=== PATIENT | male | born 2000 | race Caucasian/White ===

== ENCOUNTER 2021-03-21 20:35 | Day surgery (SDC) | payer BC ==
[~2021-03-21] VITALS: Ht 178 cm; Wt 79.0 kg
[2021-03-21] MEDS ORDERED: fentaNYL INJ 100 MCG/2 ML AMP IVP ONE ×2 (20:45→21:00)
[2021-03-21] MEDS ORDERED: ceFAZolin INJECTION 1,000 MG in WATER (STERILE) FOR INJECTION 10 ML IV ONE (20:45)
--- NOTE | 2021-03-21 20:53 | ED Upper Extremity ---
General Chief Complaint: Upper Extremity Stated Complaint: BROKE L ARM Source: patient Exam Limitations: no limitations History of Present Illness Date Seen by Provider: Mar 21, 2021 Time Seen by Provider: 20:48 Initial Comments To ER POV from home with c/o deformity to left distal forearm after he was running, tripped and fell trying to catch himself on an outstretched left arm just prior to arrival. Onset: just prior to arrival Severity: moderate Pain/Injury Location: left forearm Method of Injury: fell Modifying Factors: Worse With Movement Allergies and Home Medications Allergies Coded Allergies: Penicillins (Verified Allergy, Unknown, 03/21/21) Patient Home Medication List Home Medication List Reviewed: Yes Review of Systems Constitutional: see HPI EENTM: see HPI Respiratory: no symptoms reported Cardiovascular: no symptoms reported Genitourinary: no symptoms reported Musculoskeletal: see HPI Skin: no symptoms reported Psychiatric/Neurological: No Symptoms Reported Physical Exam Vital Signs Capillary Refill : Height, Weight, BMI Height: '" Weight: lbs. oz. kg; BMI Method: General Appearance: WD/WN, no apparent distress Neck: non-tender, full range of motion Respiratory: normal breath sounds, no respiratory distress, no accessory muscle use Gastrointestinal: normal bowel sounds, non tender, soft Shoulder: normal inspection, non-tender Elbow/Forearm: normal inspection, non-tender Wrist: Yes deformity (unable to palpate radial pulse (though BP is low at 89/50) however there is capillary refill at 3 seconds of the fingertips and strong blood flow over the radial artery with doppler. ), Yes limited ROM Hand: normal inspection, non-tender Neurologic/Tendon: normal sensation, normal motor functions, normal tendon f unctions, other (normal sensation of fingertips, can flex and extend fingers. Obvious fracture of distal radius and ulna. Two minimally bleeding lacerations to volar aspect of wrist overlying fracture site, presumed an open fracture. ) Neurologic/Psychiatric: alert, normal mood/affect, oriented x 3 Skin: normal color, warm/dry Progress/Results/Core Measures Results/Orders My Orders Orders - COREEN MCDANIELS APRN Cbc With Automated Diff (03/21/21 20:45) Alcohol (03/21/21 20:45) Comprehensive Metabolic Panel (03/21/21 20:45) Protime With Inr (03/21/21 20:45) Wrist, Left, 3 Views Or More (03/21/21 20:45) Elbow, Left, 2 Views (03/21/21 20:45) Cefazolin Injection (Ancef Injection) (03/21/21 20:45) Fentanyl Inj (Sublimaze Injection) (03/21/21 20:45) Lactated Ringers (Lr 1000 Ml Iv Solution (03/21/21 21:00) Fentanyl Inj (Sublimaze Injection) (03/21/21 21:00) Dipht,Pertuss(Acell),Tet Adult (Boostrix (03/21/21 21:15) Medications Given in ED Current Medications Medications Dose Ordered Sig/[place] Route Start Time Stop Time Status Last Admin Dose Admin Cefazolin Sodium 1000 mg/Sterile Water 10 ml @ 200 mls/hr ONCE ONCE IV 03/21/21 20:45 03/21/21 20:47 DC 03/21/21 21:01 200 MLS/HR Fentanyl Citrate 50 mcg ONCE ONCE IVP 03/21/21 21:00 03/21/21 21:01 DC 03/21/21 21:00 50 MCG Fentanyl Citrate 75 mcg ONCE ONCE IVP 03/21/21 20:45 03/21/21 20:47 DC 03/21/21 20:59 75 MCG Departure Communication (Admissions) 2124-discussed with Dr Spears, will be in to take pt to OR. Has received ancef here, 125mcg fentanyl, 1 liter LR infusing. BP up to 127/84 HR 96. ALert and oriented. Impression Primary Impression: Open fracture of left forearm Disposition: ADMITTED INPATIENT Condition: Stable Admissions Decision to Admit Reason: Admit from ER (Trauma) Decision to Admit/Date: Mar 21, 2021 Time/Decision to Admit Time: 21:29 COREEN MCDANIELS APRN Mar 21, 2021 20:53
[2021-03-21] MEDS: LACTATED RINGERS 1,000 ML IV SCH ×2 (21:01→21:11)
[2021-03-21] MEDS ORDERED: TETANUS,DIPTH,PERTUSS P/F (BOOSTRIX) 0.5 ML VIAL IM ONE (21:15)
--- NOTE | 2021-03-21 21:28 | Diagnostic Imaging Report ---
Left elbow at 857 hours. INDICATION: Injury, elbow pain. AP and off lateral views were obtained. FINDINGS: There is no fracture, dislocation or acute bony abnormality evident. The elbow joint seems well maintained. The soft tissues are unremarkable. The posterior fat-pad of the elbow joint could not be visualized due to positioning. IMPRESSION: There is no acute bony abnormality of the elbow joint. Dictated by: Dictated on workstation # [id number]
--- NOTE | 2021-03-21 21:29 | Diagnostic Imaging Report ---
Left wrist at 853 hours. INDICATION: Injury. 3 views were obtained. FINDINGS: There are widely displaced comminuted fractures of the distal radius and ulna. The distal fracture fragments are displaced medially and dorsally by more than the width of the radial and ulnar shafts. There is also a large 1.5 cm fracture fragment just below the skin surface along the volar aspect of the forearm. In addition, there appears to be a nondisplaced fracture of the ulnar styloid. No other fracture or acute bony abnormality is appreciated. IMPRESSION: There are widely displaced comminuted fractures of the distal radius and ulna. Nondisplaced fracture of the base of the ulnar styloid is also seen. Dictated by: Dictated on workstation # [id number]
[2021-03-21 21:33] LABS: BASOPHILS % (AUTO) 0 % (0-10); EOSINOPHILS # (AUTO) 0.1 10^3/uL (0.0-0.3); EOSINOPHILS % (AUTO) 1 % (0-10); HEMATOCRIT 42 % (40-54); HEMOGLOBIN 14.4 g/dL (13.3-17.7); LYMPHOCYTES # (AUTO) 1.2 10^3/uL (1.0-4.0); LYMPHOCYTES % (AUTO) 13 % (12-44); MEAN CORPUSCULAR HEMOGLOBIN 29 pg (25-34); MEAN CORPUSCULAR HGB CONC 34 g/dL (32-36); MEAN CORPUSCULAR VOLUME 85 fL (80-99); MEAN PLATELET VOLUME 9.6 fL (9.0-12.2); MONOCYTES # (AUTO) 0.5 10^3/uL (0.0-1.0); MONOCYTES % (AUTO) 6 % (0-12); NEUTROPHILS # (AUTO) 7.5 10^3/uL (1.8-7.8); NEUTROPHILS % (AUTO) 80 % (42-75); PLATELET COUNT 255 10^3/uL (130-400); WHITE BLOOD COUNT 9.4 10^3/uL (4.3-11.0)
[2021-03-21 21:45] LABS: INR 1.1 (0.8-1.4); PROTHROMBIN TIME PATIENT 14.5 SEC (12.2-14.7)
--- NOTE | 2021-03-21 21:52 | Progress Note-Pre Operative ---
Pre-Operative Progress Note H&P Reviewed The H&P was reviewed, patient examined and no changes noted. Date Seen by Provider: Mar 21, 2021 Time Seen by Provider: 21:51 Date H&P Reviewed: Mar 21, 2021 Time H&P Reviewed: 21:52 Pre-Operative Diagnosis: grade one open left both bone forearm fracture NAOMI BRAND MD Mar 21, 2021 21:52
[2021-03-21 21:54] LABS: ALANINE AMINOTRANSFERASE 17 U/L (0-55); ALBUMIN 4.6 GM/DL (3.2-4.5); ALKALINE PHOSPHATASE 47 U/L (40-136); BILIRUBIN,TOTAL 0.6 MG/DL (0.1-1.0); BUN/CREATININE RATIO 12; CARBON DIOXIDE 20 MMOL/L (21-32); CHLORIDE 105 MMOL/L (98-107); CREATININE SERUM 1.01 MG/DL (0.60-1.30); GFR ESTIMATED 94; GLUCOSE 145 MG/DL (70-105); POTASSIUM 3.8 MMOL/L (3.6-5.0); SODIUM 139 MMOL/L (135-145); TOTAL PROTEIN 7.7 GM/DL (6.4-8.2)
--- NOTE | 2021-03-21 21:55 | Progress Note-Post Operative ---
Post-Operative Progess Note Surgeon (s)/Collar Separator (s) Surgeon NAOMI BRAND MD Collar Separator: Rahul Finley Pre-Operative Diagnosis grade one open left both bone forearm fracture Post-Operative Diagnosis grade one open left both bone forearm fracture Procedure & Operative Findings Date of Procedure 03/21/21 Procedure Performed/Findings irrigation and debridement of left radius and open reduction and internal fixation of the left radius and ulna shaft fractures Anesthesia Type GETA Estimated Blood Loss Estimated blood loss (mL): minimal Specimens/Packing Specimens Removed none Packing: none NAOMI BRAND MD Mar 21, 2021 21:55
[2021-03-21] MEDS ORDERED: ACHD5005 PO (21:57)
[2021-03-21] MEDS ORDERED: SEVOFLURANE (ULTANE) 15 ML INHAL SOLN ONE (22:14)
[2021-03-21] MEDS ORDERED: proPOfol 200 MG/20 ML (DIPRIVAN) VIAL IV ONE (22:14)
[2021-03-21] MEDS ORDERED: LIDOCAINE PF 2% 5 ML (XYLOCAINE) VIAL ONE (22:14)
[2021-03-21] MEDS ORDERED: fentaNYL INJ 100 MCG/2 ML AMP ONE (22:14)
[2021-03-21] MEDS ORDERED: ONDANSETRON 4 MG/2 ML (SDV) Z0FRAN ONE (22:14)
[2021-03-21] MEDS ORDERED: fentaNYL INJ 100 MCG/2 ML AMP IVP PRN (22:15)
[2021-03-21] MEDS ORDERED: MIDAZOLAM 2 MG/2 ML (VERSED) VIAL ONE (22:15)
[2021-03-21] MEDS ORDERED: ONDANSETRON 4 MG/2 ML (SDV) Z0FRAN IVP PRN (22:15)
[2021-03-21] MEDS ORDERED: NALOXONE 0.4 MG/ML 1 ML (NARCAN) VIAL IV PRN (22:15)
--- NOTE | 2021-03-21 22:16 | HISTORY AND PHYSICAL ---
DATE OF SERVICE: 03/21/2021 REASON FOR ADMISSION: Grade I open left radius fracture with closed left ulna fracture. 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 Radiographs were obtained, which revealed a distal shaft fracture of the radius and ulna with displacement. The patient denies prior history of forearm problems. ALLERGIES: PENICILLIN. PAST MEDICAL HISTORY: None. PAST SURGICAL HISTORY: Denies. MEDICATIONS: None. PHYSICAL EXAMINATION: GENERAL: The patient is well-developed, well-nourished, in no acute distress. HEENT: Normocephalic, atraumatic. Pupils are equal, round and reactive to light. Oropharynx is clear. NECK: Supple, no lymphadenopathy. LUNGS: Clear to auscultation bilaterally. HEART: Regular rate and rhythm. ABDOMEN: Soft, nontender, nondistended. EXTREMITIES: Left forearm demonstrates no obvious deformity with prominence volarly. There is a 1 cm laceration volarly with no gross contamination. Distally, the patient has intact thumb IP flexion and extension. He has intact MCP extension, and finger abduction. Sensation is intact in radial, ulnar and median distribution, slightly decreased in an ulnar distribution. Radiographs reveal displaced distal radial and ulna shaft fractures. IMPRESSION: Grade I open left radial shaft fracture and closed displaced left ulnar shaft fracture. PLAN: Open reduction and internal fixation, left radius and ulna with irrigation and debridement of the radius. We discussed risks, benefits, options, ramifications and recovery. The patient understands and wishes to proceed. Job ID: [id number] DocumentID: [id number] Dictated Date: 03/21/2021 21:51:41 Power Press Tender Date: 03/21/2021 22:15:28 Dictated By: NAOMI BRAND MD
[2021-03-21] MEDS ORDERED: ceFAZolin INJECTION 1,000 MG ONE (23:17)
[2021-03-21] MEDS ORDERED: BUPIVACAINE 0.5% 30 ML (SENSORCAINE) VIAL ONE (23:17)
[2021-03-22] VITALS (9 sets, daily range): BP systolic 117–138; BP diastolic 71–92
[2021-03-22] MEDS ORDERED: SEVOFLURANE (ULTANE) 15 ML INHAL SOLN ONE (00:04)
--- NOTE | 2021-03-22 00:53 | Anesthesia-General Post-Op ---
General Patient Condition Mental Status/LOC: Same as Preop Cardiovascular: Satisfactory Nausea/Vomiting: Absent Respiratory: Satisfactory Pain: Controlled Complications: Absent Post Op Complications Complications None Follow Up Care/Instructions Patient Instructions None needed. Anesthesia/Patient Condition Patient Condition Patient is doing well, no complaints, stable vital signs, no apparent adverse anesthesia problems. No complications reported per nursing. AAMIR STEWART CRNA Mar 22, 2021 00:53
[2021-03-22] MEDS ORDERED: ONDANSETRON 4 MG/2 ML (SDV) Z0FRAN IVP PRN (01:00)
[2021-03-22] MEDS ORDERED: PROMETHAZINE INJ 25 MG/ML (PHENERGAN) AMP IVP ONE (01:00)
[2021-03-22] MEDS ORDERED: HYDROmorphone 2 MG/ML VIAL (DILAUDID) IV ONE (01:00)
[2021-03-22] MEDS ORDERED: morphine INJ 10 MG/ML 1ML (SYR OR VIAL) IVP ONE (01:00)
[2021-03-22] MEDS ORDERED: MEPERIDINE (DEMEROL) INJ 50 MG/ML IVP ONE (01:00)
[2021-03-22] MEDS ORDERED: fentaNYL INJ 100 MCG/2 ML AMP IVP ONE (01:00)
[2021-03-22] MEDS ORDERED: morphine INJ 10 MG/ML 1ML (SYR OR VIAL) ONE (01:33)
[2021-03-22] MEDS: LACTATED RINGERS 1,000 ML IV SCH (01:51)
[2021-03-22] MEDS ORDERED: HYDROcodone/APAP 7.5 MG/325 MG (LORTAB, LORCET PLUS) TABLET PO ONE (02:21)
[2021-03-22] MEDS: HYDROcodone/APAP 7.5 MG/325 MG (LORTAB, LORCET PLUS) TABLET PO PRN ×3 (02:36→13:31)
[2021-03-22] MEDS: ceFAZolin INJECTION 1,000 MG in WATER (STERILE) FOR INJECTION 10 ML IV SCH ×3 (02:36→13:31)
--- NOTE | 2021-03-22 02:43 | OPERATIVE REPORT ---
DATE OF SERVICE: 03/22/2021 PREOPERATIVE DIAGNOSES: 1. Grade I open left radius shaft fracture. 2. Closed displaced left ulnar shaft fracture. PREOPERATIVE DIAGNOSES: 1. Grade I open left radius shaft fracture. 2. Closed displaced left ulnar shaft fracture. PROCEDURES: 1. Irrigation and debridement of the left radius. 2. Open reduction and internal fixation of the left radius. 3. Open reduction and internal fixation of left ulna. SURGEON: Mario Brand MD LIVING MANAGER: Rahul Finley, who assisted throughout the procedure and closed the incisions. ANESTHESIA: General endotracheal by Matteo Acosta CRNA. TOURNIQUET TIME: 87 minutes at 250 mmHg. ESTIMATED BLOOD LOSS: Minimal. DRAINS: None. COMPLICATIONS: None. POSTOPERATIVE PLAN: A 24 hours of IV antibiotics, patient was transferred to the recovery room awake and stable condition. 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 Radiographs revealed 100% displacement of radial and ulna distal shaft fractures. This was felt to be a grade I open fracture. Because of this, the patient was given IV Ancef and with plans for urgent emergent irrigation and debridement and fixation. DESCRIPTION OF PROCEDURE: After risks and benefits of procedure were discussed and questions were answered, informed consent was signed and placed on chart, the operative site was confirmed in the preoperative holding area initialed by the surgeon. The patient was then transferred to the operating room. After adequate levels of general endotracheal anesthetic were obtained, a timeout was called, confirming the operative site. The patient was given an additional 1 gram of Ancef. The open laceration site was extended. There was a small cortical bone fragment with asphalt appearing substance on the actual bone fragment. Therefore, this was discarded. No other gross contamination of the wound was noted. This was irrigated with pulse lavage. This was very central in the forearm away from possible incision. Therefore, separate incision was made in the interval between the flexor carpi radialis and brachioradialis. The underlying soft tissues were carefully dissected. The fracture site was identified and reduced anatomically. The butterfly fragment, which was resected did leave a small defect, but excellent cortical apposition was obtained. Otherwise, a 7-hole 3.5 Fabrizio dynamic compression plate was placed with three cortical screws placed proximally three cortical screws placed distally, all with excellent purchase. Fluoroscopy in AP, lateral and oblique planes revealed anatomic reduction of the fracture with well-placed hardware. This was irrigated as well with pulse lavage prior to fixation. A total of 9 liters were used throughout the procedure. An incision was then made over the ulna fracture. The underlying soft tissues were carefully dissected. The plane between the flexor and extensor compartments was developed bluntly. The fracture was also copiously irrigated with pulse lavage again using a total of 9 liters throughout the procedure. The fracture was reduced anatomically and a 6-hole one-third tubular plate was placed. A one-third tubular plate was placed due to the prominence of the dynamic compression plate. It was felt that the one-third tubular would be adequate for fixation. Three cortical screws were placed proximally, three cortical screws placed distal to the fracture, all with good purchase obtained. Fluoroscopy in AP, lateral and oblique planes revealed anatomic reduction of the fractures with well-placed hardware. The wounds were further irrigated. A 2-0 Vicryl was used to reapproximate the fascia over the plate on the ulnar side and skin was closed with harjit. The laceration site was closed with 4-0 nylon in simple interrupted fashion, 3-0 Vicryl was used to reapproximate the subcutaneous tissue at the radial site and harjit were used on the skin for both incisions. The incisions were infiltrated with plain Marcaine. A soft dressing and splint were applied and the patient was transferred to the recovery room awake and in stable condition. Job ID: [id number] DocumentID: [id number] Dictated Date: 03/22/2021 00:54:00 Reel Repairer Date: 03/22/2021 02:42:23 Dictated By: MARIO BRAND MD
--- NOTE | 2021-03-22 06:58 | Progress Note ---
Standard Progress Note Progress Notes/Assess & Plan Date Seen by a Provider: Mar 22, 2021 Time Seen by a Provider: 06:56 Progress/Assessment & Plan no complaints denies paresthesias LUE--Intact MCP extension, finger abduction and thumb IP flex/ext intact sensation to light touch R, U, Median distribution brisk cap refill s/p I and D and ORIF L forearm DC after 3rd post op Ancef dose FU two weeks Bactrim and Doxy for ten days regular diet NAOMI BRAND MD Mar 22, 2021 06:58
--- NOTE | 2021-03-22 07:57 | Diagnostic Imaging Report ---
EXAMINATION: Fluoroscopy up to one hour. INDICATION: Fracture. Fluoroscopic assistance was provided for Dr. Spears during his ORIF procedure of the left forearm. 9 seconds of fluoroscopy time was utilized. AP and lateral spot films were obtained. There are now orthopedic plate and screw fixation devices securing the fractures of the distal radius and ulna seen on the prior exam of 03/21/2021. The orthopedic hardware seems to be in good position. IMPRESSION: Fluoroscopic assistance was provided for Dr. Spears. Dictated by: Dictated on workstation # [id number]
== END 2021-03-22 14:00 | disposition home or self-care (01) ==
LOC: ER 20:38 → SDC 21:45 → 4TH 03-22 01:50 → SDC 03-22 14:00
PROVIDERS: ATTEND Orthopaedic Surgery
DX: S52.302B Unspecified fracture of shaft of left radius, initial encounter for open fracture type I or II (principal); S52.202A Unspecified fracture of shaft of left ulna, initial encounter for closed fracture
CPT/HCPCS: 25575; 29125; 73070; 73110; 76000; 80053; 85025; 85610; 90471; 96374; 96375; 99285; C1713 ×4; G0480; 36415; 80320